=== PATIENT | male | born 1950 | race African-American/Black ===

== ENCOUNTER 2016-06-29 17:17 | Inpatient (IN) | payer MEDICARE ==
[~2016-06-29] VITALS: Ht 180.3 cm; Wt 86.1 kg
[2016-06-29 17:53] LABS: BASOPHILS 0.1 % (0.0-2.0); EOSINOPHILS 0.5 % (0-7); HEMATOCRIT 28.2 % (42.0-54.0); HEMOGLOBIN 8.6 g/dL (13.5-17.5); IMMATURE GRANULOCYTES 0.1 % (0-5); MCH 24.5 pg (26.0-34.0); MCHC 30.5 g/dL (31.0-37.0); MCV 80.3 fL (80.0-100.0); MEAN PLATELET VOLUME 10.9 fL (7.4-10.4); MONOCYTES 12.5 % (2-11); NEUTROPHILS 73.8 % (40-80); RBC 3.51 10x6/uL (4.20-6.10); RDW 14.1 % (11.5-14.5); WBC 9.2 10x3/uL (4.8-10.8)
[2016-06-29 17:54] LABS: PLATELET COUNT 285 10x3/uL (130-400)
[2016-06-29 18:11] LABS: ALBUMIN 2.6 g/dL (3.4-5.0); ANION GAP 7.6 mmol/L (8-16); BILIRUBIN - TOTAL 0.32 mg/dL (0.2-1.3); CARBON DIOXIDE 36.7 mmol/L (21.0-32.0); CREATININE - SERUM 1.1 mg/dL (0.6-1.3); POTASSIUM - SERUM 3.3 mmol/L (3.5-5.1); PROTEIN - SERUM 7.7 g/dL (6.4-8.2); TROPONIN-I 0.055 ng/mL (0.000-0.060)
[2016-06-29 18:12] LABS: CALCIUM 13.9 mg/dL (8.5-10.1)
[2016-06-29 20:00] VITALS: BP 144/79
[2016-06-29 20:32] LABS: APPEARANCE CLEAR (CLEAR); BILIRUBIN NEGATIVE (NEGATIVE); COLOR YELLOW (YELLOW); GLUCOSE NEGATIVE (NEGATIVE); KETONE NEGATIVE (NEGATIVE); LEUKOCYTE ESTERASE NEGATIVE (NEGATIVE); NITRITE NEGATIVE (NEGATIVE); PROTEIN NEGATIVE (NEGATIVE); UROBILINOGEN NORMAL (NORMAL)
--- NOTE | 2016-06-29 21:00 | NUR ---
REC FROM ER VIA STRETCHER. NEEDED ASSISTANCE TO TRANSFER TO BED. ALERT AND ORIENTED X 4. IV IN L AC SL. STARTED NS AT 150 ML/HR PER ORDER. REQUESTED URINAL TO VOID AND ANOTHER BLANKET. HIS IS PRESENT. STATED SHE WOULD CALL IN HIS MEDICATIONS WHEN SHE GETS HOME. ORIENTED TO ROOM AND CALL LIGHT FOR ANY NEEDS OR DISCOMFORT.
[2016-06-29] MEDS ORDERED: ZOLOFT100 MG PO (23:48)
[2016-06-29] MEDS ORDERED: LOVASTATIN10 MG PO (23:49)
[2016-06-29] MEDS ORDERED: HYDROCHLOROTH12.5 M1 PO (23:50)
[2016-06-29] MEDS ORDERED: LANTUS INSULIN10 ML SC (23:51)
[2016-06-29] MEDS ORDERED: SPIRIVA18 MCG INH (23:51)
[2016-06-29] MEDS ORDERED: SYMBICORT 16010.2 GM INH (23:52)
[2016-06-29] MEDS ORDERED: VENTOLIN/PR2 MG/5 ML (23:52)
[2016-06-29] MEDS ORDERED: FLOMAX0.4 MG PO (23:53)
[2016-06-29] MEDS ORDERED: VERAPAMIL HCL40 MG PO (23:53)
[2016-06-29] MEDS ORDERED: GABAPENTIN100 MG PO (23:54)
[2016-06-30] VITALS: BP 146/73
[2016-06-30 00:01] VITALS: BP 144/79; Ht 180.3 cm; Wt 86.1 kg
[2016-06-30] MEDS ORDERED: CILOSTAZOL50 MG PO (01:59)
[2016-06-30] MEDS ORDERED: HYZAAR 50-12.51 TAB PO (02:00)
[2016-06-30] MEDS ORDERED: LIPITOR80 MG PO (02:01)
[2016-06-30] MEDS ORDERED: SPIRIVA RESPIMAT4 G1 INH (02:05)
--- NOTE | 2016-06-30 04:16 | NUR ---
AWAKE REQUESTED MORE ICE WATER. TELEMETRY SHOWS 90 SR ON MONITOR. SCDS ARE ON.
--- NOTE | 2016-06-30 08:00 | NUR ---
ASSESSMENT DONE. PT A/O. ASSITED PT WITH URINAL. CHANGED GOWN D/T PT MISSING URINAL AND URINATING ON GOWN AND FLOOR. PT DENIES OTHER NEEDS AT THIS TIME. CALL LIGHT WITH IN REACH. WILL CONT. TO MONITOR.
[2016-06-30 08:12] VITALS: BP 174/84
--- NOTE | 2016-06-30 10:15 | NUR ---
PT'S HERE. STATES [facility]. WILL NOTIFY DESIREE.
--- NOTE | 2016-06-30 10:18 | NUR ---
UP IN CHAIR WITH CALL LIGHT IN REACH. AT BS. WILL CONT. PLAN OF CARE.
[2016-06-30 12:03] VITALS: BP 145/82
--- NOTE | 2016-06-30 15:25 | NUR ---
06/30/2016 15:21 CM: Case Management Order rec'd for [facility] for [facility] - call placed to [facility] ([phone]). Request for transfer initiated. Provided them contact information for nursing station. [facility] will contact Dr. Corcoran for physician to physician review.
[2016-06-30 16:22] VITALS: BP 144/66
--- NOTE | 2016-06-30 17:34 | NUR ---
PT SLEEPING. SPOUSE IN ROOM. NO DISTRESS NOTED. AWAITING TRANSFER TO [place].
--- NOTE | 2016-06-30 19:26 | NUR ---
REPORT CALLED TO PERLITA LU RN AT DC IN [place] [phone]. PT WILL GO TO 6D BED 5.
--- NOTE | 2016-06-30 19:41 | NUR ---
REPORT RECEVED. ANDREANET CALLED AT 1930 FOR IMPENDING [facility] TO [facility] UN[facility] 6D BED 5. PT AND INFORMED. ASSESSMENT COMPLETED. O2 3LNC. IV TO LAC SL. LUNGS DIMINISHED IN BASES BILAT. SEXTON. PALPABLE PERIPHERAL PULSES. EQUAL HAND AND FOOT STRENGTH BUT GENERALIZED WEAKNESS NOTED. AT BEDSIDE. WILL CONTINUE TO MONITOR.
[2016-06-30 19:50] VITALS: BP 138/81
--- NOTE | 2016-06-30 21:07 | NUR ---
CALLED [facility] TO GET AN APPROXIMATE TIME OF WHEN THEY WILL BE HERE. INFORMED BY CAREN THEY WILL BE HERE SOON THEY CAN.
--- NOTE | 2016-06-30 22:02 | NUR ---
PT AWAKE; DENIES ANY DISCOMFORT. WAITING FOR [facility] FOR [facility] TO [facility]. AT BEDSIDE.
--- NOTE | 2016-06-30 23:02 | NUR ---
[facility] HERE. REPORT JO-ANN. [facility] CALL[facility] INFORMED PT JUST LEFTED THIS FACILITY.
== END 2016-06-30 23:04 | disposition short-term general hospital (02) | DRG 181 ==
LOC: D.ER 17:17 → D.M2 19:05
PROVIDERS: Emergency Medicine; ADMIT Family Medicine Adult Medicine
DX: C34.90 Malignant neoplasm of unspecified part of unspecified bronchus or lung (principal); I69.351 Hemiplegia and hemiparesis following cerebral infarction affecting right dominant side; E11.40 Type 2 diabetes mellitus with diabetic neuropathy, unspecified; R32 Unspecified urinary incontinence; E83.52 Hypercalcemia; J44.9 Chronic obstructive pulmonary disease, unspecified; R41.0 Disorientation, unspecified; D64.89 Other specified anemias; Z87.891 Personal history of nicotine dependence

== ENCOUNTER 2016-08-20 03:01 | Emergency (ER) | payer MEDICARE ==
[2016-06-30 00:01] VITALS: BMI 26.4
[~2016-08-20 03:01] MED LIST: CILOSTAZOL50 MG PO; FLOMAX0.4 MG PO; GABAPENTIN100 MG PO; HYDROCHLOROTH12.5 M1 PO; HYZAAR 50-12.51 TAB PO; LANTUS INSULIN10 ML SC; LIPITOR80 MG PO; LOVASTATIN10 MG PO; SPIRIVA RESPIMAT4 G1 INH; SPIRIVA18 MCG INH; SYMBICORT 16010.2 GM INH; VENTOLIN/PR2 MG/5 ML; VERAPAMIL HCL40 MG PO; ZOLOFT100 MG PO
[2016-08-20 03:31] LABS: BASOPHILS 0.1 % (0.0-2.0); EOSINOPHILS 1.2 % (0-7); HEMATOCRIT 28.7 % (42.0-54.0); HEMOGLOBIN 8.4 g/dL (13.5-17.5); IMMATURE GRANULOCYTES 0.3 % (0-5); MCH 21.6 pg (26.0-34.0); MCHC 29.3 g/dL (31.0-37.0); MCV 73.8 fL (80.0-100.0); MEAN PLATELET VOLUME 10.9 fL (7.4-10.4); NEUTROPHILS 79.4 % (40-80); PLATELET COUNT 435 10x3/uL (130-400); RBC 3.89 10x6/uL (4.20-6.10); WBC 13.9 10x3/uL (4.8-10.8)
[2016-08-20 04:12] LABS: ALBUMIN 2.3 g/dL (3.4-5.0); ALKALINE PHOSPHATASE 128 U/L (46-116); ALT (SGPT) 23 U/L (10-68); AMYLASE - SERUM 26 U/L (25-115); BILIRUBIN - TOTAL 0.31 mg/dL (0.2-1.3); CARBON DIOXIDE 31.9 mmol/L (21.0-32.0); CHLORIDE - SERUM 99 mmol/L (98-107); CREATININE - SERUM 0.8 mg/dL (0.6-1.3); LIPASE 73 U/L (73-393); POTASSIUM - SERUM 3.5 mmol/L (3.5-5.1); PRO BNP 1636 pg/mL (0-125); PROTEIN - SERUM 8.4 g/dL (6.4-8.2); SODIUM 137 mmol/L (136-145); UREA NITROGEN 20 mg/dL (7-18); eGFR NON AFRICAN AMERICAN > 90 mL/min (90-120)
[2016-08-20 04:14] LABS: CALC OSMOLALITY 274 mosm/kg (275-300); GLUCOSE 69 mg/dL (74-106); TROPONIN-I 0.102 ng/mL (0.000-0.060)
== END 2016-08-20 06:50 | disposition short-term general hospital (02) ==
LOC: D.ER 03:01
PROVIDERS: Family Medicine
DX: C78.00 Secondary malignant neoplasm of unspecified lung (principal); E83.52 Hypercalcemia; R06.00 Dyspnea, unspecified; R79.89 Other specified abnormal findings of blood chemistry; Z86.73 Personal history of transient ischemic attack (TIA), and cerebral infarction without residual deficits; R00.0 Tachycardia, unspecified; I45.10 Unspecified right bundle-branch block